=== PATIENT | male | born 1985 ===

== ENCOUNTER 2016-10-03 17:47 | Emergency (ER) | payer SELFPAY ==
[2016-10-03 19:13] VITALS: BP 125/69
--- NOTE | 2016-10-03 19:44 | UC ---
Shortness of Breath HPI - HPI Summary HPI Summary: The patient comes in today for: 1. Left shoulder pain: Onset: 1 week ago. Palliative/provocative: Abduction in the anterior or lateral plane makes it worse. Left rotation makes it worse. Quality: Sharp Region: Left lateral neck and left posterior shoulder. Severity: 10/10 but he is not crying. Time: Constant. Associated symptoms: Numbness: None. Weakness: None. Injury: None. Previous disease: None Previous treatment: Tylenol 325 mg four times today. * - History of Current Complaint Chief Complaint: UCUpperExtremity Stated Complaint: LFT SHOULDER PAIN Time Seen by Provider: 10/03/16 19:34 Hx Obtained From: Patient, Family/Dishwasher - Allergy/Home Medications Allergies/Adverse Reactions: Allergies Allergy/AdvReac Type Severity Reaction Status Date / Time No Known Allergies Allergy Verified 10/03/16 19:13 Home Medications: Home Medications Acetaminophen TAB* [Tylenol TAB*] 1,000 mg PO Q4H PRN 10/03/16 [History Confirmed 10/03/16] PMH/Surg Hx/FS Hx/Imm Hx Previously Healthy: Yes - Surgical History Surgical History: None - Family History Known Family History: Positive: Hypertension, Diabetes - Social History Occupation: Employed Full-time Alcohol Use: Rare Substance Use Type: None Smoking Status (MU): Never Smoked Tobacco Amount Used/How Often: 1 ppd/ day Review of Systems Constitutional: Negative Skin: Negative Eyes: Negative ENT: Negative Respiratory: Negative Cardiovascular: Negative Gastrointestinal: Negative Musculoskeletal: Arthralgia All Other Systems Reviewed And Are Negative: Yes Physical Exam Triage Information Reviewed: Yes Appearance: Well-Appearing, No Pain Distress - He was smiling through most of the exam. He did hold his left side/arm during this evaluation, but he had good passive movement., Well-Nourished Vital Signs: Initial Vital Signs Temp 98.5 F 10/03/16 19:07 Pulse 89 10/03/16 19:07 Resp 14 10/03/16 19:07 BP 125/69 10/03/16 19:07 Pulse Ox 98 10/03/16 19:07 Vital Signs Reviewed: Yes Eyes: Positive: Conjunctiva Clear. Negative: Discharge ENT: Positive: Hearing grossly normal. Negative: Pharyngeal erythema, Nasal congestion, Nasal drainage, TM bulging, TM dull, TM red, Tonsillar swelling, Tonsillar exudate Dental: Negative: Gross Decay/Caries @, Dental Fracture @ Neck: Positive: Supple, Nontender, No Lymphadenopathy. Negative: Nuchal Rigidity Respiratory: Positive: Lungs clear, No respiratory distress, No accessory muscle use. Negative: Crackles, Wheezing Cardiovascular: Positive: RRR, No Murmur Abdomen Description: Positive: Nontender, No Organomegaly, Soft. Negative: Distended, Guarding Musculoskeletal: Positive: Strength Intact, No Edema, Other: - He had passive abduction of the left arm to 90 degrees with no pain. There was no soreness to palpation of the coracoid process or of the biceps tendon. There was marked tenderness along the medial and superior border of the left scapula. There was also tenderness to palpation of the left scalene musculature. No masses or enlarged lymph nodes. Block Cutter, and strength testing of the biceps, triceps and deltoid were normal and symmetrical. The DTR (biceps, triceps, brachioradialis ) were 2+/2 x 2. Radial pulses were 2+/2 x 2. Neurological: Positive: Alert, Muscle Tone Normal Psychological: Positive: Normal Response To Family, Age Appropriate Behavior, Consolable Skin: Negative: rashes, breakdown Shortness of Breath Dx - Course Course Of Treatment: Patient education given regarding neck stretches and physical therapy exercises to lossen the scapular musculature. - Differential Dx/Diagnosis Provider Diagnoses: Left shoulder strain. Left cervical strain. Discharge - Discharge Plan Condition: Stable Disposition: HOME Patient Education Materials: Cervical Strain (ED), Shoulder Sprain (ED) Forms: *Work Release Referrals: Non Staff,Doctor [Primary Care Provider] - 1 Week (Please see your primary care provider in about one to two weeks to see how well you are doing. If you get worse, please be seen sooner.)
== END 2016-10-03 20:14 | disposition home or self-care (01) ==
LOC: UCCORT 17:47
DX: S46.912A Strain of unspecified muscle, fascia and tendon at shoulder and upper arm level, left arm, initial encounter (principal); S16.1XXA Strain of muscle, fascia and tendon at neck level, initial encounter; X58.XXXA Exposure to other specified factors, initial encounter; Y93.9 Activity, unspecified; Y92.9 Unspecified place or not applicable; F17.210 Nicotine dependence, cigarettes, uncomplicated
CPT/HCPCS: 99202; G0463

== ENCOUNTER 2016-12-12 14:15 | Emergency (ER) | payer SELFPAY ==
[2016-12-12 14:41] VITALS: BP 122/70
--- NOTE | 2016-12-12 14:47 | ED ---
Laceration/Wound HPI - HPI Summary HPI Summary: 31 YEAR OLD MALE PRESENTS WITH COMPLAINS OF LEFT KNEE LACERATION (> 5 CM) SECONDARY TO A [employer]AINSAW. - History of Current Complaint Stated Complaint: LEFT KNEE LAC Time Seen by Provider: 12/12/16 14:47 Hx Obtained From: Patient Onset/Duration: Sudden Onset Aggravating: Movement Onset Severity: Moderate Current Severity: Moderate Pain Scale Used: 0-10 Numeric - 5 - Allergy/Home Medications Allergies/Adverse Reactions: Allergies Allergy/AdvReac Type Severity Reaction Status Date / Time No Known Allergies Allergy Verified 12/12/16 14:41 PMH/Surg Hx/FS Hx/Imm Hx Previously Healthy: Yes Infectious Disease History: No Infectious Disease History: Denies: Traveled Outside the [place] in Last 30 Days - Family History Known Family History: Positive: Hypertension, Diabetes - Social History Alcohol Use: Rare Substance Use Type: Reports: None Smoking Status (MU): Heavy Every Day Tobacco Smoker Type: Smokeless Tobacco Amount Used/How Often: 1/2 - 1 ppd Review of Systems Constitutional: Negative Eyes: Negative ENT: Negative Cardiovascular: Negative Respiratory: Negative Gastrointestinal: Negative Genitourinary: Negative Musculoskeletal: Negative Positive: Other - LEFT KNEE LACERATION Neurological: Negative Psychological: Normal All Other Systems Reviewed And Are Negative: Yes Physical Exam Triage Information Reviewed: Yes Vital Signs On Initial Exam: Initial Vitals Temp Pulse Resp BP Pulse Ox 37.0 C 94 17 122/70 99 12/12/16 14:35 12/12/16 14:35 12/12/16 14:35 12/12/16 14:35 12/12/16 14:35 Vital Signs Reviewed: Yes Skin: Positive: Other - LEFT KNEE LACERATION Eyes: Positive: Normal ENT: Positive: Normal ENT inspection Neck: Positive: Supple Respiratory/Lung Sounds: Positive: Clear to Auscultation Cardiovascular: Positive: Normal Abdomen Description: Positive: Nontender Bowel Sounds: Positive: Present Musculoskeletal: Positive: Normal Neurological: Positive: Normal Psychiatric: Positive: Normal Procedures - Laceration/Wound Repair 1 Location: lower extremity - LEFT KNEE Description: Linear Anesthesia: Local, 1.0% Betadine Prep?: Yes Laceration/Wound Explored: contaminated Closure: Single Layer Debridement: minimal Suture Type: Prolene - 4.0 Number of Sutures: 10 Layer Closure?: No Sterile Dressing Applied?: Yes Diagnostics - Vital Signs Vital Signs Temp Pulse Resp BP Pulse Ox 12/12/16 14:35 37.0 C 94 17 122/70 99 - Laboratory Lab Statement: Any lab studies that have been ordered have been reviewed, and results considered in the medical decision making process. Laceration Repair Course/Dx - Clinical Impression Provider Diagnoses: Laceration of knee, left Discharge - Discharge Plan Condition: Stable Disposition: HOME Prescriptions: Ibuprofen TAB* [Motrin TAB* 800 MG] 800 mg PO Q8H PRN #30 tab PRN Reason: Pain Sulfamethox/Trimethoprim DS* [Bactrim DS 800/160 TAB*] 1 tab PO BID #20 tab Patient Education Materials: Laceration (ED) Referrals: Non Staff,Doctor [Primary Care Provider] - Additional Instructions: follow up in 2 days
[2016-12-12] MEDS ORDERED: Lidocaine 1% MPF* 2 ML VIAL INJ ONE ×2 (14:50)
[2016-12-12] MEDS ORDERED: Tetan/Diph/Pertus SYR(Tdap)* 0.5 ML SYR(BOOSTRIX) use SYR IM ONE (14:51)
== END 2016-12-12 15:55 | disposition home or self-care (01) ==
LOC: UCCORT 14:15
DX: S81.012A Laceration without foreign body, left knee, initial encounter (principal); W29.3XXA Contact with powered garden and outdoor hand tools and machinery, initial encounter; Y93.9 Activity, unspecified; Y92.9 Unspecified place or not applicable; F17.210 Nicotine dependence, cigarettes, uncomplicated
CPT/HCPCS: 12002; 99212; G0463